=== PATIENT | female | born 2005 | race African-American/Black ===

== ENCOUNTER 2025-10-04 23:57 | Emergency (ER) | payer OTHER, SELFPAY ==
[2025-10-05 00:01] VITALS: BP 119/78; PULSE 72; RESP 16; TEMP 36.5; O2SAT 98
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
[2025-10-05 01:08] VITALS: BP 116/81; PULSE 74; RESP 17; TEMP 36.6; O2SAT 99
--- NOTE | 2025-10-05 01:10 | PC.NURSE ---
pt given resources with discharge papers.
[2025-10-05 01:11] VITALS: BP 116/81; PULSE 74; RESP 17; TEMP 36.6; O2SAT 99
== END 2025-10-05 01:45 | disposition home or self-care (01) ==
PROVIDERS: Emergency Provider Registered Nurse
DX: Z02.89 Encounter for other administrative examinations (principal); F31.9 Bipolar disorder, unspecified; F41.9 Anxiety disorder, unspecified; F90.9 Attention-deficit hyperactivity disorder, unspecified type; Z59.00 Homelessness unspecified; H54.8 Legal blindness, as defined in USA; Z79.899 Other long term (current) drug therapy
CPT/HCPCS: 99281